=== PATIENT | female | born 1995 | race Caucasian/White ===

== ENCOUNTER 2019-07-28 16:15 | Emergency (ER) | payer OTHER ==
[2019-07-28] MEDS ORDERED: ACETAMINOPHEN 325 MG SUPP.RECT PR ONE ×2 (16:27→16:28)
[2019-07-28] MEDS ORDERED: METOCLOPRAMIDE HCL INJ/PF 10 MG/2 ML SDV IV ONE (16:27)
[2019-07-28] MEDS ORDERED: RINGERS SOLUTION,LACTATED 1,000 ML IV ONE (16:27)
[2019-07-28] MEDS ORDERED: DIPHENHYDRAMINE HCL 50 MG/ML VIAL IV ONE (16:27)
--- NOTE | 2019-07-28 16:33 | ER Document Report ---
ED Medical Screen (RME) - General Chief Complaint: Headache >24 hrs old Stated Complaint: HEADACHE/VOMITING Time Seen by Provider: 07/28/19 16:22 Mode of Arrival: Ambulatory Information source: Patient Notes: 24-year-old female with history of migraines and approximately 14 weeks presents emergency department with complaints of migraine for the past 24 hours. Reports she is vomited for 24 hours unable to keep any fluids down. She contacted her OB and was told to come to the emergency department. She reports this is worse than her regular migraines. Reports this migraine is in the center of her head usually her migraine is on bilateral confucianist. Reports noise bothers her. She reports she has taken Tylenol without relief of symptoms. She reports she took Tylenol at approximately 10:00 this morning but vomited it up. I have greeted and performed a rapid initial assessment of this patient. A comprehensive ED assessment and evaluation of the patient, analysis of test results and completion of the medical decision making process will be conducted by additional ED providers. - Related Data Allergies/Adverse Reactions: No Known Allergies Allergy (Unverified 07/28/19 16:24) Physical Exam - Vital signs Vitals: Temp Pulse Resp BP Pulse Ox 97.9 F 92 18 119/58 L 100 07/28/19 16:19 07/28/19 16:19 07/28/19 16:19 07/28/19 16:19 07/28/19 16:19 Course - Vital Signs Vital signs: Temp Pulse Resp BP Pulse Ox 97.9 F 92 18 119/58 L 100 07/28/19 16:19 07/28/19 16:19 07/28/19 16:19 07/28/19 16:19 07/28/19 16:19
[2019-07-28 17:21] LABS: ABSOLUTE LYMPHOCYTES (AUTO) 1.4 10^3/uL (0.5-4.7); ABSOLUTE MONOCYTES (AUTO) 0.4 10^3/uL (0.1-1.4); ABSOLUTE NEUT (AUTO) 6.8 10^3/uL (1.7-8.2); BASOPHILS % (AUTO) 0.2 % (0-2); EOSINOPHILS % (AUTO) 0.4 % (0-6); HEMATOCRIT 35.8 % (36.0-47.0); HEMOGLOBIN 12.6 g/dL (12.0-15.5); LYMPHOCYTES % (AUTO) 16.3 % (13-45); MEAN CORPUSCULAR HEMOGLOBIN 28.7 pg (27.0-33.4); MEAN CORPUSCULAR HGB CONC 35.3 g/dL (32.0-36.0); MEAN CORPUSCULAR VOLUME 81 fl (80-97); MONOCYTES % (AUTO) 4.5 % (3-13); PLATELET COUNT 165 10^3/uL (150-450); RED BLOOD COUNT 4.39 10^6/uL (3.72-5.28); RED CELL DISTRIBUTION WIDTH 13.5 % (11.5-14.0); SEGMENTED NEUTROPHILS % (AUTO) 78.6 % (42-78); TOTAL CELLS COUNTED % (AUTO) 100 %; WHITE BLOOD COUNT 8.6 10^3/uL (4.0-10.5)
[2019-07-28 17:42] LABS: ALBUMIN 3.7 g/dL (3.5-5.0); ALKALINE PHOSPHATASE 45 U/L (38-126); ANION GAP 7 (5-19); ASPARTATE AMINO TRANSFERASE 19 U/L (14-36); BILIRUBIN,DIRECT 0.2 mg/dL (0.0-0.4); BILIRUBIN,TOTAL 0.6 mg/dL (0.2-1.3); BLOOD UREA NITROGEN 7 mg/dL (7-20); CALCIUM 9.3 mg/dL (8.4-10.2); CARBON DIOXIDE 23 mmol/L (22-30); CHLORIDE 104 mmol/L (98-107); GLUCOSE 75 mg/dL (75-110); POTASSIUM 3.5 mmol/L (3.6-5.0); TOTAL PROTEIN 6.6 g/dL (6.3-8.2)
--- NOTE | 2019-07-28 17:44 | ER Document Report ---
ED General - General Chief Complaint: Headache >24 hrs old Stated Complaint: HEADACHE/VOMITING Time Seen by Provider: 07/28/19 16:22 Mode of Arrival: Ambulatory Notes: Patient is a 24-year-old white female who is G1, P0 at approximately 14 weeks gestation who presents to the emergency department with a chief complaint of headache, nausea and vomiting that began about 24 hours ago. The patient reports that she normally suffers from migraines. She states that over the past 24 hours she has been unable to keep down any food or drink secondary to headache, nausea and vomiting. She states she called her OB today for advice and they advised she come to the emergency department for "IV hydration". Upon my evaluation the patient has received a liter normal saline, Reglan, Benadryl and Tylenol. She states that she is feeling much better and the headache is resolving. Nausea is resolving. She denies any visual disturbances, dizziness, numbness, tingling or weakness. No head injury. No abdominal pain or vaginal bleeding. No urinary complaints. - Related Data Allergies/Adverse Reactions: ondansetron [From Zofran] Allergy (Verified 07/28/19 16:32) Past Medical History - General Information source: Patient - Social History Smoking Status: Unknown if Ever Smoked Chew tobacco use (# tins/day): No Frequency of alcohol use: None Drug Abuse: None Family History: None Patient has suicidal ideation: No Patient has homicidal ideation: No Review of Systems - Review of Systems Gastrointestinal: Nausea, Vomiting Neurological/Psychological: Headaches -: Yes All other systems reviewed and negative Physical Exam - Vital signs Vitals: Temp Pulse Resp BP Pulse Ox 97.9 F 92 18 119/58 L 100 07/28/19 16:19 07/28/19 16:19 07/28/19 16:19 07/28/19 16:19 07/28/19 16:19 - General General appearance: Appears well, Alert In distress: None - HEENT Head: Normocephalic, Atraumatic Eyes: Normal Conjunctiva: Normal Extraocular movements intact: Yes Eyelashes: Normal Pupils: PERRL Ears: Normal External canal: Normal Tympanic membrane: Normal Sinus: Normal Nasal: Normal Mouth/Lips: Normal Mucous membranes: Normal Pharynx: Normal Neck: Normal - Respiratory Respiratory status: No respiratory distress Chest status: Nontender Breath sounds: Normal Chest palpation: Normal - Cardiovascular Rhythm: Regular Heart sounds: Normal auscultation - Abdominal Inspection: Normal Distension: No distension Bowel sounds: Normal Tenderness: Nontender Organomegaly: No organomegaly - Neurological Neuro grossly intact: Yes Cognition: Normal Orientation: AAOx4 Mario Coma Scale Eye Opening: Spontaneous [place] Coma Scale Verbal: Oriented [place] Coma Scale Motor: Obeys Commands Mario Coma Scale Total: 15 Speech: Normal Cranial nerves: Normal Cerebellar coordination: Normal - Psychological Associated symptoms: Normal affect, Normal mood - Skin Skin Temperature: Warm Skin Moisture: Dry Skin Color: Normal Course - Re-evaluation Re-evalutation: 07/28/19 19:33 Reevaluation at this time, patient reports that she is feeling "much better". She states the headache is completely resolved and the nausea is gone. She is tolerating oral intake well. She does not have home medication for nausea and vomiting. We will prescribe a short course of Reglan and she will consult with OB on whether to continue or change to their preferred medication regimen for nausea and vomiting in . She was mildly dehydrated but received a liter of normal saline here. She is stable and appropriate for discharge and outpatient follow-up. I counseled her at length regarding the importance of outpatient follow-up and advised that she return here or any ER immediately with any new, persistent or worsening symptoms. She verbalized understood and agreed. - Vital Signs Vital signs: Temp Pulse Resp BP Pulse Ox 97.9 F 92 18 119/58 L 100 07/28/19 16:19 07/28/19 16:19 07/28/19 16:19 07/28/19 16:19 07/28/19 16:19 - Laboratory Result Diagrams: 07/28/19 17:00 07/28/19 17:00 Laboratory results interpreted by me: 07/28/19 07/28/19 07/28/19 17:00 17:00 18:35 Hct 35.8 L Seg Neutrophils % 78.6 H Sodium 134.4 L Potassium 3.5 L Creatinine 0.49 L Urine Ketones 20 H Discharge - Discharge Clinical Impression: Nausea and vomiting during , Dehydration, mild Condition: Stable Disposition: HOME, SELF-CARE Instructions: ([facility]) Additional Instructions: Follow-up with your [facility] POOL INSTALLER in the next 2 to 3 days for reevaluation and your regular doctor as needed. Return here or any ER immediately with any new, persistent or worsening symptoms. Prescriptions: Metoclopramide HCl [Reglan] 10 mg PO QID PRN #40 tablet PRN Reason:
[2019-07-28] MEDS ORDERED: ACETAMINOPHEN 325 MG TABLET PO ONE (18:24)
[2019-07-28 19:16] LABS: APPEARANCE,URINE CLEAR; BILIRUBIN,URINE NEGATIVE (NEGATIVE); COLOR,URINE STRAW; GLUCOSE, URINE NEGATIVE (NEGATIVE); KETONES,URINE 20 mg/dL (NEGATIVE); LEUKOCYTE ESTERASE,URINE NEGATIVE (NEGATIVE); NITRITE,URINE NEGATIVE (NEGATIVE); PROTEIN,URINE NEGATIVE (NEGATIVE); URINE SPECIFIC GRAVITY 1.006; UROBILINOGEN,URINE NEGATIVE mg/dL (<2.0)
[2019-07-28 19:41] VITALS: BP 106/52
== END 2019-07-28 19:43 | disposition home or self-care (01) ==
LOC: ER 16:15
DX: O21.8 Other vomiting complicating pregnancy (principal); E86.0 Dehydration; R51 Headache; Z3A.14 14 weeks gestation of pregnancy
CPT/HCPCS: 99284; 96361; 96374; 96375; 36415; 85025; 80053; 81001; J1200; J2765; J7120

== ENCOUNTER 2020-01-23 19:25 | Emergency (ER) | payer OTHER ==
--- NOTE | 2020-01-23 19:42 | ER Document Report ---
ED Medical Screen (RME) - General Chief Complaint: OB Problem (<20wks) Stated Complaint: POST DELIVERY BLEEDING Time Seen by Provider: 01/23/20 19:33 Mode of Arrival: Ambulatory Information source: Patient Notes: 24-year-old female presents to ED for complaint of multiple blood clots and increased bleeding vaginally today. She states this is her first baby. She delivered on Friday. She states she did have a very minimal bleeding until today. She states she called [facility] [employer] [facility] told her that she passed a large clot earlier today they told her she been sent about that was probably normal. She states they told her to call back later if she had another 1. She had passed the second clot and then had much heavier bleeding than she had been having. They told her if she soaked more than a pad in an hour she needed to come to the emergency room. She states she has been bleeding much heavier and has soaked multiple pads so she came to the emergency room. She states she did have low iron and low platelets and protein in her urine after delivery. She states that she had a very low blood pressure before in the 110s over 60s and she did not have preeclampsia but after delivery she had some very high blood pressures and then it was down to like the 130s and 120s over 60s and 70s. We will get blood and urine and have her seen by 1 of the providers. I will also type and screen in case she needs blood. Patient is alert oriented respirations regular nonlabored speaking in full sentences walks with even steady gait. I have greeted and performed a rapid initial assessment of this patient. A comprehensive ED assessment and evaluation of the patient, analysis of test results and completion of medical decision making process will be conducted by an additional ED providers. - Related Data Allergies/Adverse Reactions: ondansetron [From Zofran] Allergy (Verified 07/28/19 16:32) Physical Exam - Vital signs Vitals: Temp Pulse Resp BP Pulse Ox 98.4 F 98 16 132/84 H 97 01/23/20 19:42 01/23/20 19:42 01/23/20 19:42 01/23/20 19:42 01/23/20 19:42 Course - Vital Signs Vital signs: Temp Pulse Resp BP Pulse Ox 98.4 F 98 16 132/84 H 97 01/23/20 19:42 01/23/20 19:42 01/23/20 19:42 01/23/20 19:42 01/23/20 19:42 - Laboratory Result Diagrams: 01/23/20 20:40 01/23/20 20:40 Laboratory results interpreted by me: 01/23/20 20:40 Hgb 11.5 L Hct 32.5 L RDW 16.1 H
[2020-01-23 21:06] LABS: ABSOLUTE EOSINOPHILS # (AUTO) 0.1 10^3/uL (0.0-0.6); ABSOLUTE LYMPHOCYTES (AUTO) 1.9 10^3/uL (0.5-4.7); ABSOLUTE MONOCYTES (AUTO) 0.3 10^3/uL (0.1-1.4); TOTAL CELLS COUNTED % (AUTO) 100 %
[2020-01-23 21:12] LABS: ABSOLUTE NEUT (AUTO) 4.1 10^3/uL (1.7-8.2); BASOPHILS % (AUTO) 0.2 % (0-2); EOSINOPHILS % (AUTO) 0.8 % (0-6); HEMATOCRIT 32.5 % (36.0-47.0); HEMOGLOBIN 11.5 g/dL (12.0-15.5); LYMPHOCYTES % (AUTO) 29.5 % (13-45); MEAN CORPUSCULAR HEMOGLOBIN 29.7 pg (27.0-33.4); MEAN CORPUSCULAR HGB CONC 35.3 g/dL (32.0-36.0); MEAN CORPUSCULAR VOLUME 84 fl (80-97); MONOCYTES % (AUTO) 5.1 % (3-13); PLATELET COUNT 231 10^3/uL (150-450); RED BLOOD COUNT 3.87 10^6/uL (3.72-5.28); RED CELL DISTRIBUTION WIDTH 16.1 % (11.5-14.0); SEGMENTED NEUTROPHILS % (AUTO) 64.4 % (42-78); WHITE BLOOD COUNT 6.4 10^3/uL (4.0-10.5)
[2020-01-23 21:28] LABS: ALBUMIN 3.6 g/dL (3.5-5.0); ALKALINE PHOSPHATASE 102 U/L (38-126); ANION GAP 7 (5-19); ASPARTATE AMINO TRANSFERASE 30 U/L (14-36); BILIRUBIN,DIRECT 0.3 mg/dL (0.0-0.4); BILIRUBIN,TOTAL 0.6 mg/dL (0.2-1.3); BLOOD UREA NITROGEN 12 mg/dL (7-20); CALCIUM 9.2 mg/dL (8.4-10.2); CARBON DIOXIDE 24 mmol/L (22-30); CHLORIDE 106 mmol/L (98-107); GLUCOSE 88 mg/dL (75-110); POTASSIUM 4.2 mmol/L (3.6-5.0); TOTAL PROTEIN 6.5 g/dL (6.3-8.2)
[2020-01-23 21:41] LABS: APPEARANCE,URINE SLIGHTLY-CLOUDY; BILIRUBIN,URINE NEGATIVE (NEGATIVE); GLUCOSE, URINE NEGATIVE (NEGATIVE); KETONES,URINE NEGATIVE (NEGATIVE); LEUKOCYTE ESTERASE,URINE NEGATIVE (NEGATIVE); NITRITE,URINE NEGATIVE (NEGATIVE); PROTEIN,URINE NEGATIVE (NEGATIVE); URINE SPECIFIC GRAVITY 1.005; UROBILINOGEN,URINE NEGATIVE mg/dL (<2.0)
[2020-01-23 21:47] LABS: COLOR,URINE RED
[2020-01-23] MEDS ORDERED: NORMAL SALINE 1000 ML 1,000 ML IV ONE (23:38)
--- NOTE | 2020-01-23 23:40 | ER Document Report ---
ED GI/ - General Chief Complaint: Post Problem Stated Complaint: POST DELIVERY BLEEDING Time Seen by Provider: 01/23/20 19:33 Mode of Arrival: Ambulatory Notes: Patient is a 24-year-old female that comes emergency department for chief complaint of vaginal bleeding after spontaneous vaginal delivery on 01/17/2020 at [facility]. Patient states that after delivery she has been bleeding only very lightly almost with only spotting at times, she states that today she started to bleed much more noticeably, she passed a large blood clot, after that she was bleeding through about 1 pad an hour for 3 to 4 hours. She states she called her [facility]CER PROGRAM DIRECTOR and they told her if she passed another blood clot or was soaking mor e than a pad an hour she needed to come to the emergency department. Patient states she is on iron and vitamins, she is not on any other medications, she is currently breast-feeding. She denies dizziness, passing out, abdominal pain, abnormal discharge, dysuria, flank pain. She states she did have lower extremity swelling in the third trimester but this is significantly improved. - Related Data Allergies/Adverse Reactions: ondansetron [From Zofran] Allergy (Verified 07/28/19 16:32) Home Medications: , iron Past Medical History - General Information source: Patient - Social History Smoking Status: Never Smoker Frequency of alcohol use: None Drug Abuse: None Lives with: Family Family History: None Patient has homicidal ideation: No Surgical Hx: Negative - Immunizations Immunizations up to date: Yes Hx Diphtheria, Pertussis, Tetanus Vaccination: Yes Review of Systems - Review of Systems Constitutional: No symptoms reported EENT: No symptoms reported Cardiovascular: No symptoms reported Respiratory: No symptoms reported Gastrointestinal: No symptoms reported Genitourinary: No symptoms reported Female Genitourinary: See HPI Musculoskeletal: No symptoms reported Skin: No symptoms reported Hematologic/Lymphatic: No symptoms reported Neurological/Psychological: No symptoms reported Physical Exam - Vital signs Vitals: Temp Pulse Resp BP Pulse Ox 98.4 F 98 16 132/84 H 97 01/23/20 19:42 01/23/20 19:42 01/23/20 19:42 01/23/20 19:42 01/23/20 19:42 - Notes Notes: GENERAL: Alert, interacts well. No acute distress. HEAD: Normocephalic, atraumatic. EYES: Pupils equal, round, and reactive to light. Extraocular movements intact. ENT: Oral mucosa moist, tongue midline. Oropharynx unremarkable. Airway patent. NECK: Full range of motion. Supple. Trachea midline. No lymphadenopathy. LUNGS: Clear to auscultation bilaterally, no wheezes, rales, or rhonchi. No respiratory distress. Non-tender chest wall. HEART: Regular rate and rhythm. No murmur ABDOMEN: Soft, non-tender. Non-distended. Bowel sounds present in all 4 quadrants. GENITOURINARY: No concerning external findings. Speculum exam shows moderate amount of bleeding, one clot was noted, there is bleeding coming from the cervix. No lesions, no very heavy bleeding, no discharge, no tenderness, no other concerning findings. Exam performed with Felisha IBARRA at bedside. EXTREMITIES: Moves all 4 extremities spontaneously. No edema, normal radial and dorsalis pedis pulses bilaterally. No cyanosis. BACK: no cervical, thoracic, lumbar midline tenderness. No saddle anesthesia, no rmal distal neurovascular exam. Moves all extremities in full range of motion. NEUROLOGICAL: Alert and oriented x3. Normal speech. Cranial nerves II through XII grossly intact. Strength 5/5 in all extremities. PSYCH: Normal affect, normal mood. SKIN: Warm, dry, normal turgor. No rashes or lesions noted. Course - Re-evaluation Re-evalutation: CBC is reassuring with hemoglobin of 11.5, remaining work-up unremarkable, urine nonspecific with what I suspect is contamination. Abdomen is soft and benign on exam, vital signs unremarkable, patient stands without dizziness, patient does have bleeding on exam but there is no severe bleeding suggesting a concerning underlying abnormality. I discussed with patient. Patient has a follow-up appointment today, she states that she will take the copy of her CBC with her on her recheck, she states she is ready for discharge. Stable and well-appearing at time of discharge. - Vital Signs Vital signs: Temp Pulse Resp BP Pulse Ox 98.2 F 62 14 137/88 H 100 01/24/20 00:35 01/24/20 00:35 01/24/20 00:35 01/24/20 00:35 01/24/20 00:35 - Laboratory Result Diagrams: 01/23/20 20:40 01/23/20 20:40 Laboratory results interpreted by me: 01/23/20 01/23/20 20:40 20:40 Hgb 11.5 L Hct 32.5 L RDW 16.1 H Urine Blood LARGE H Discharge - Discharge Clinical Impression: Excessive bleeding after vaginal delivery Condition: Stable Disposition: HOME, SELF-CARE Additional Instructions: Your hemoglobin, vital signs, and remaining evaluation are reassuring. Follow- up with your appointment today for recheck and additional management. Return if you worsen including heavier bleeding, dizziness, passing out, severe pain, fever, vomiting, or any other concerning symptoms.
[2020-01-24 00:38] VITALS: BP 137/88
== END 2020-01-24 00:38 | disposition home or self-care (01) ==
LOC: ER 19:25
DX: O72.2 Delayed and secondary postpartum hemorrhage (principal); Z79.899 Other long term (current) drug therapy; Z88.8 Allergy status to other drugs, medicaments and biological substances
CPT/HCPCS: 99284; 96360; 86900; 86901; 36415; 87086; 86850; 85025; 80053; 81001; J7030